=== PATIENT | female | born 2000 | race Caucasian/White ===

== ENCOUNTER 2019-11-16 18:39 | Emergency (ER) | payer OTHER ==
[2019-11-16] MEDS ORDERED: MORPHINE SULFATE 10 MG/ML INJ IV ONE (20:00)
[2019-11-16] MEDS ORDERED: NORMAL SALINE 1000 ML 1,000 ML IV ONE (20:04)
--- NOTE | 2019-11-16 20:04 | ER Document Report ---
ED Medical Screen (RME) - General Chief Complaint: Abdominal Pain Stated Complaint: LOWER ABDOMINAL PAIN Time Seen by Provider: 11/16/19 19:55 - HPI Notes: 11/16/19 20:02 19-year-old female presents to the emergency room for right lower quadrant abdominal pain that is severe. Patient was seen at her primary care today for complaints of periumbilical pain that it radiated to her right lower quadrant, states pain is 10 out of 10 when palpated states that she "felt every bump in the road", positive McBurney sign while she was at the doctor's today. Patient states she has been nauseous and vomiting. Denies any abdominal surgeries, last menstrual cycle was on November 09, 2019. Unable to eat and drink. Denies any chest pain, shortness of breath. Last bowel movement was this morning I have greeted and performed a rapid initial assessment of this patient. A comprehensive ED assessment and evaluation of the patient, analysis of test results and completion of the medical decision making process will be conducted by additional ED providers. PHYSICAL EXAMINATION: GENERAL: Well-appearing, well-nourished and in no acute distress. HEAD: Atraumatic, normocephalic. EYES: Pupils equal round extraocular movements intact, conjunctiva are normal. NECK: Normal range of motion CV: s1, s2 regular LUNGS: No respiratory distress abd: Right lower quadrant pain and palpation, positive McBurney sign. No CVA tenderness appreciated bilaterally Musculoskeletal: Normal range of motion NEUROLOGICAL: Normal speech, normal gait. SKIN: Warm, Dry, normal turgor, no rashes or lesions noted. - Related Data Allergies/Adverse Reactions: ondansetron [From Zofran] Adverse Reaction (Verified 11/16/19 19:54) Past Medical History - Social History Chew tobacco use (# tins/day): No Frequency of alcohol use: Social Drug Abuse: None Physical Exam - Vital signs Vitals: Temp Pulse Resp BP Pulse Ox 99.1 F 99 18 127/60 H 99 11/16/19 18:48 11/16/19 18:48 11/16/19 18:48 11/16/19 18:48 11/16/19 18:48 Course - Vital Signs Vital signs: Temp Pulse Resp BP Pulse Ox 99.1 F 99 18 127/60 H 99 11/16/19 19:53 11/16/19 18:48 11/16/19 18:48 11/16/19 18:48 11/16/19 18:48
[2019-11-16] MEDS ORDERED: METOCLOPRAMIDE HCL INJ/PF 10 MG/2 ML SDV IV ONE (20:05)
[2019-11-16 20:38] LABS: ABSOLUTE LYMPHOCYTES (AUTO) 1.5 10^3/uL (0.5-4.7); ABSOLUTE MONOCYTES (AUTO) 0.7 10^3/uL (0.1-1.4); ABSOLUTE NEUT (AUTO) 16.5 10^3/uL (1.7-8.2); BASOPHILS % (AUTO) 0.2 % (0-2); EOSINOPHILS % (AUTO) 0.1 % (0-6); HEMATOCRIT 42.2 % (36.0-47.0); HEMOGLOBIN 14.2 g/dL (12.0-15.5); LYMPHOCYTES % (AUTO) 7.9 % (13-45); MEAN CORPUSCULAR HEMOGLOBIN 31.1 pg (27.0-33.4); MEAN CORPUSCULAR HGB CONC 33.7 g/dL (32.0-36.0); MEAN CORPUSCULAR VOLUME 92 fl (80-97); MONOCYTES % (AUTO) 3.9 % (3-13); PLATELET COUNT 268 10^3/uL (150-450); RED BLOOD COUNT 4.58 10^6/uL (3.72-5.28); RED CELL DISTRIBUTION WIDTH 13.7 % (11.5-14.0); SEGMENTED NEUTROPHILS % (AUTO) 87.9 % (42-78); TOTAL CELLS COUNTED % (AUTO) 100 %; WHITE BLOOD COUNT 18.8 10^3/uL (4.0-10.5)
[2019-11-16 20:57] LABS: ALBUMIN 4.7 g/dL (3.5-5.0); ALKALINE PHOSPHATASE 84 U/L (38-126); ANION GAP 9 (5-19); ASPARTATE AMINO TRANSFERASE 26 U/L (14-36); BILIRUBIN,TOTAL 0.5 mg/dL (0.2-1.3); BLOOD UREA NITROGEN 16 mg/dL (7-20); CARBON DIOXIDE 26 mmol/L (22-30); CHLORIDE 102 mmol/L (98-107); GLUCOSE 108 mg/dL (75-110); TOTAL PROTEIN 8.1 g/dL (6.3-8.2)
--- NOTE | 2019-11-16 22:51 | RADIOLOGY REPORT (SQ) ---
EXAM DESCRIPTION: CT ABDOMEN PELVIS WITH IV CONTRAST COMPLETED DATE/TME: 11/16/2019 19:55 CLINICAL HISTORY: 19 years, Female, RLQ abd pain COMPARISON: None. TECHNIQUE: 435 Images stored on PACS. All CT scanners at this facility use dose modulation, iterative reconstruction, and/or weight based dosing when appropriate to reduce radiation dose to as low as reasonably achievable (ALARA). [facility]: Dose Right [facility]: CareDose [facility]: Dose Right [facility]: Teradose 4D [facility]: [employer] LIMITATIONS: None. FINDINGS: The visualized lung bases are unremarkable. Osseous structures are grossly intact. Fatty infiltrative change to the liver. The spleen, adrenal glands, pancreas, kidneys are unremarkable. The gallbladder is present. Small hiatal hernia. There is no evidence for bowel obstruction. The appendix measures 6.6 mm in thickness, which is upper limits of normal in thickness. The appendix is not opacified with contrast.. No significant periappendiceal inflammatory change. Some equivocal wall enhancement of the appendix. Continued follow-up recommended. No free air or free fluid. Probable follicular change to the ovaries bilaterally. Nonenlarged to borderline enlarged mesenteric lymph nodes are present.. IMPRESSION: Appendix does not fill with contrast. However, appendiceal diameter is within normal limits, at the upper limits of normal range. No surrounding inflammation. Several nonenlarged to borderline enlarged mesenteric lymph nodes may reflect mild mesenteric adenitis. Fatty infiltrative change to the liver. Small hiatal hernia.. TECHNICAL DOCUMENTATION: Quality ID # [id number]: Final reports with documentation of one or more dose reduction techniques (e.g., Automated exposure control, adjustment of the mA and/or kV according to patient size, use of iterative reconstruction technique) copyright 2011 [employer]- All Rights Reserved
[2019-11-16 23:54] LABS: APPEARANCE,URINE CLEAR; BILIRUBIN,URINE NEGATIVE (NEGATIVE); COLOR,URINE YELLOW; GLUCOSE, URINE NEGATIVE (NEGATIVE); KETONES,URINE NEGATIVE (NEGATIVE); LEUKOCYTE ESTERASE,URINE NEGATIVE (NEGATIVE); NITRITE,URINE NEGATIVE (NEGATIVE); PROTEIN,URINE NEGATIVE (NEGATIVE); URINE SPECIFIC GRAVITY 1.021; UROBILINOGEN,URINE NEGATIVE mg/dL (<2.0)
--- NOTE | 2019-11-17 01:24 | ER Document Report ---
ED GI/ - General Chief Complaint: Abdominal Pain Stated Complaint: LOWER ABDOMINAL PAIN Time Seen by Provider: 11/16/19 19:55 Primary Care Provider: ANAIS BROWNLEE PA-C [Primary Care Provider] - Follow up in 3-5 days Mode of Arrival: Ambulatory Information source: Patient Notes: 19-year-old female presented to ED for complaint of right lower quadrant abdominal pain. She states she went to her primary care doctor and she had pain 10 out of 10 so they sent her to the emergency room to be evaluated. She was seen in triage and had labs and CT abdomen pelvis ordered. By the time I saw her the results were back on the labs and the CT. CT showed possible mesenteric adenitis. Did not show an appendicitis that stated that the appendix was normal. I did discuss this with Dr. Moore who stated the treatment for this was symptom control with anti-inflammatories or steroids if needed only antibiotics if she had fevers or a surgical abdomen which this patient does not. - HPI Patient complains to provider of: Abdominal pain Onset: Yesterday Timing/Duration: Gradual Quality of pain: Sharp Severity at maximum: Moderate Severity in ED: Moderate Pain Level: 3 Location: RUQ Vaginal bleeding (Compared to normal period): None LMP: 11/09/2019 Associated symptoms: Nausea, Vomiting - X3 Exacerbated by: Movement Relieved by: Denies Similar symptoms previously: Yes Recently seen / treated by doctor: Yes - Related Data Allergies/Adverse Reactions: ondansetron [From Zofran] Adverse Reaction (Verified 11/16/19 19:54) Past Medical History - Social History Smoking Status: Never Smoker Chew tobacco use (# tins/day): No Frequency of alcohol use: Social Drug Abuse: None Lives with: Family Family History: Reviewed & Not Pertinent Patient has suicidal ideation: No Patient has homicidal ideation: No - Past Medical History Cardiac Medical History: Reports: None Pulmonary Medical History: Reports: None EENT Medical History: Reports: None Neurological Medical History: Reports: None Endocrine Medical History: Reports: None Renal/ Medical History: Reports: None Malignancy Medical History: Reports: None GI Medical History: Reports: None Musculoskeletal Medical History: Reports None Skin Medical History: Reports None Psychiatric Medical History: Reports: None Traumatic Medical History: Reports: None Infectious Medical History: Reports: None Surgical Hx: Negative Past Surgical History: Reports: None - Immunizations Immunizations up to date: Yes Review of Systems - Review of Systems Constitutional: No symptoms reported EENT: No symptoms reported Cardiovascular: No symptoms reported Respiratory: No symptoms reported Gastrointestinal: Abdominal pain, Nausea, Vomiting Genitourinary: No symptoms reported Female Genitourinary: No symptoms reported Musculoskeletal: No symptoms reported Skin: No symptoms reported Hematologic/Lymphatic: No symptoms reported Neurological/Psychological: No symptoms reported -: Yes All other systems reviewed and negative Physical Exam - Vital signs Vitals: Temp Pulse Resp BP Pulse Ox 99.1 F 99 18 127/60 H 99 11/16/19 18:48 11/16/19 18:48 11/16/19 18:48 11/16/19 18:48 11/16/19 18:48 Interpretation: Normal - General General appearance: Appears well, Alert - HEENT Head: Normocephalic, Atraumatic Eyes: Normal Pupils: PERRL - Respiratory Respiratory status: No respiratory distress Chest status: Nontender Breath sounds: Normal Chest palpation: Normal - Cardiovascular Rhythm: Regular Heart sounds: Normal auscultation Murmur: No - Abdominal Inspection: Normal Distension: No distension Bowel sounds: Normal Tenderness: Tender - Generalized more to the periumbilical. No: McBurney's point, Oliver's sign, Guarding, Rebound Organomegaly: No organomegaly - Back Back: Normal, Nontender - Extremities General upper extremity: Normal inspection, Nontender, Normal color, Normal ROM, Normal temperature General lower extremity: Normal inspection, Nontender, Normal color, Normal ROM, Normal temperature, Normal weight bearing. No: January's sign - Neurological Neuro grossly intact: Yes Cognition: Normal Orientation: AAOx4 [place] Coma Scale Eye Opening: Spontaneous [place] Coma Scale Verbal: Oriented Maria Elena Coma Scale Motor: Obeys Commands Maria Elena Coma Scale Total: 15 Speech: Normal Motor strength normal: LUE, RUE, LLE, RLE Sensory: Normal - Psychological Associated symptoms: Normal affect, Normal mood - Skin Skin Temperature: Warm Skin Moisture: Dry Skin Color: Normal Course - Re-evaluation Re-evalutation: 11/17/19 07:[address] with Dr. Moore. There was no appendicitis noted on the CT. It did state that it was more mesenteric adenitis. This was discussed with the patient. Patient was able to drink fluids with no difficulty. She has not had any more nausea and vomiting since being in the emergency room. She has been afebrile throughout her visit. She was discharged home with instructions to return to the ED for any increase in symptoms any fever any increase in nausea or vomiting. Patient verbalized understanding and agreement with treatment plan patient was discharged home. - Vital Signs Vital signs: Temp Pulse Resp BP Pulse Ox 98.6 F 80 16 104/69 100 11/17/19 01:30 11/17/19 01:30 11/17/19 01:30 11/17/19 01:30 11/17/19 01:30 - Laboratory Result Diagrams: 11/16/19 20:17 11/16/19 20:17 Laboratory results interpreted by me: 11/16/19 20:17 WBC 18.8 H Lymph % (Auto) 7.9 L Absolute Neuts (auto) 16.5 H Seg Neutrophils % 87.9 H - Diagnostic Test Radiology reviewed: Image reviewed, Reports reviewed Discharge - Discharge Clinical Impression: Mesenteric adenitis, Abdominal pain Condition: Stable Disposition: HOME, SELF-CARE Additional Instructions: You were seen today for mesenteric adenitis Mesenteric adenitis is a condition that more often affects children and teenagers. It causes inflammation and swelling in the lymph nodes inside the abdomen. Lymph nodes are small, knox-shaped organs that contain white blood cells called lymphocytes. This needs to be treated with anti-inflammatory such as Motrin ibuprofen or naproxen. This does not normally need antibiotics unless abscess develops. You do not have an abscess at this time. Develop any nausea or vomiting fevers increasing pain you would need to be reexamined and you could need to be started on antibiotics IV at that time. Please return to the ED immediately for any fevers chills nausea vomiting diarrhea or increase in pain. Ibuprofen Ibuprofen is an excellent, safe drug for pain control. In addition, it has potent antiinflammatory effects which are beneficial, especially in the treatment of injuries, arthritis, or tendonitis. It's best to take ibuprofen with food. Persons with ulcer disease or allergy to aspirin should notify their physician of this before taking ibuprofen. Take the medication exactly as prescribed. Don't take additional doses unless instructed to do so by your doctor. If you develop wheezing, shortness of breath, hives, faintness, stomach pain, vomiting, or dark black stools, return for re-evaluation at once. Reglan (Metoclopramide) Reglan has been prescribed. This medicine affects the stomach and intestines. It can be used to treat nausea and vomiting, to prevent reflux of stomach acid up into the esophagus, or to increase the contractions of the stomach and intestines. It is often prescribed for esophagitis, and for paralysis of the stomach in diabetics. Reglan can cause either mild restlessness or drowsiness. You should contact the doctor at once if you become extremely restless, anxious, or cannot sleep, or if you develop uncontrollable motions of the lips, tongue, or jaw. Do not take alcohol with this medicine. Do not drive or operate machinery until you have been taking this medicine long enough to know how it affects you. Call the doctor if you develop abdominal pains, lightheadedness, black stool, or blood in the stool or vomitus. FOLLOW-UP CARE: If you have been referred to a physician for follow-up care, call the physicians office for an appointment as you were instructed or within the next two days. If you experience worsening or a significant change in your symptoms, notify the physician immediately or return to the Emergency Department at any time for re-evaluation. Prescriptions: Metoclopramide HCl [Reglan] 10 mg PO Q6HP PRN #20 tablet PRN Reason: Forms: Return to Work Referrals: ANAIS BROWNLEE PA-C [Primary Care Provider] - Follow up in 3-5 days
[2019-11-17 01:31] VITALS: BP 104/69
== END 2019-11-17 01:53 | disposition home or self-care (01) ==
LOC: ER 18:39
DX: I88.0 Nonspecific mesenteric lymphadenitis (principal); R10.30 Lower abdominal pain, unspecified; R11.2 Nausea with vomiting, unspecified
CPT/HCPCS: 99284; 96361; 96374; 96375; 36415; 83690; 85025; 81025; 80053; 81001; 74177; J2765; J2270; J7030